=== PATIENT | male | born 2005 | race African-American/Black ===

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

== ENCOUNTER 2024-01-14 11:25 | Emergency (ER) | payer BC ==
[2024-01-14] MEDS ORDERED: Lorazepam 2 MG/ML VIAL ONE (11:43)
[2024-01-14 11:58] LABS: #Basophils 0.1 thou/uL (0.0-0.2); #Eosinphils 0.1 thou/uL (0.0-0.7); #Lymphocytes 4.3 thou/uL (1.20-3.40); #Monocytes 0.5 thou/uL (0.11-0.59); #Neutrophils 2.6 thou/uL (1.40-6.50); %Basophils 1.8 % (0.0-1.0); %Eosinophils 0.9 % (0.0-10.0); %Lymphocytes 56.4 % (28.0-48.0); %Monocytes 6.2 % (0.0-4.0); %Neutrophils 34.7 % (31.0-61.0); Hematocrit 42.4 % (42.0-52.0); Hemoglobin 14.6 g/dL (14.0-18.0); Mean Corpuscular HGB CONC 34.4 g/dL (32.0-36.0); Mean Platelet Volume 8.5 fL (7.4-10.4); Platelet Count 272 10x3/uL (130-400); RBC Distribution Width 10.8 % (11.5-14.5); Red Blood Cell (RBC) Count 4.71 mill/uL (4.00-5.20); White Blood Cell (WBC) Count 7.5 10x3/uL (4.8-10.8)
[2024-01-14 12:10] LABS: Troponin I Less than 0.010 ng/mL (< 0.028)
[2024-01-14 12:12] LABS: ALT (SGPT) 14 U/L (8-55); AST (SGOT) 22 U/L (10-45); Albumin 4.8 g/dL (3.5-5.0); Alkaline Phosphatase 121 U/L (50-130); Anion Gap 18 mmol/L (10-20); BUN (Urea Nitrogen) 15 mg/dL (8.4-21.0); Bilirubin, Total 0.4 mg/dL (0.2-1.2); CK (CPK) 121 U/L (30-200); Calc. Creatinine Clearance 0 mL/min (70-130); Calcium 9.9 mg/dL (7.8-10.44); Carbon Dioxide 21 mmol/L (22-29); Chloride 104 mmol/L (98-107); Estimated GFR 110; Globulin 4.1 g/dL (2.4-3.5); Glucose 135 mg/dL (70-105); Potassium 3.2 mmol/L (3.5-5.1); Protein, Total 8.9 g/dL (6.0-8.3); Sodium 140 mmol/L (136-145)
[2024-01-14] MEDS ORDERED: Sodium Chloride 0.9% 2,000 ML ONE (12:14)
== END 2024-01-14 13:24 | disposition home or self-care (01) ==
LOC: NAV ERS 11:25
DX: F12.10 Cannabis abuse, uncomplicated (principal); R00.2 Palpitations; F17.290 Nicotine dependence, other tobacco product, uncomplicated
CPT/HCPCS: 71045; 80053; 82550; 84484; 85025; 96361; 96374; J2060; J7050

== ENCOUNTER 2024-03-29 06:44 | Emergency (ER) | payer BC, SELFPAY ==
[2024-03-29 07:18] LABS: #Basophils 0.1 thou/uL (0.0-0.2); #Eosinphils 0.1 thou/uL (0.0-0.7); #Lymphocytes 2.6 thou/uL (1.20-3.40); #Monocytes 0.6 thou/uL (0.11-0.59); #Neutrophils 2.5 thou/uL (1.40-6.50); %Basophils 1.6 % (0.0-1.0); %Eosinophils 0.9 % (0.0-10.0); %Lymphocytes 44.2 % (28.0-48.0); %Monocytes 10.2 % (0.0-4.0); %Neutrophils 43.1 % (31.0-61.0); Hematocrit 42.3 % (42.0-52.0); Mean Corpuscular Hemoglobin 29.4 pg (25.0-35.0); Mean Corpuscular Volume 89.2 fl (78.0-98.0); Mean Platelet Volume 8.9 fL (7.4-10.4); Platelet Count 209 10x3/uL (130-400); RBC Distribution Width 10.9 % (11.5-14.5); Red Blood Cell (RBC) Count 4.74 mill/uL (4.00-5.20); White Blood Cell (WBC) Count 5.8 10x3/uL (4.8-10.8)
[2024-03-29 07:30] LABS: ALT (SGPT) 21 U/L (8-55); AST (SGOT) 82 U/L (10-45); Albumin 4.8 g/dL (3.5-5.0); Alkaline Phosphatase 146 U/L (50-130); Anion Gap 22 mmol/L (10-20); BUN (Urea Nitrogen) 13 mg/dL (8.4-21.0); Bilirubin, Total 0.9 mg/dL (0.2-1.2); Calc. Creatinine Clearance 0 mL/min (70-130); Carbon Dioxide 18 mmol/L (22-29); Chloride 105 mmol/L (98-107); Estimated GFR 113; Globulin 3.4 g/dL (2.4-3.5); Glucose 101 mg/dL (70-105); Potassium 3.5 mmol/L (3.5-5.1); Protein, Total 8.2 g/dL (6.0-8.3); Sodium 141 mmol/L (136-145)
[2024-03-29] MEDS ORDERED: Sodium Chloride 0.9% 1,000 ML ONE (07:31)
[2024-03-29 08:08] LABS: Troponin I 0.013 ng/mL (< 0.028)
[2024-03-29 08:51] LABS: Bilirubin Small (Negative); Blood, Urine Negative (Negative); Clarity Clear (Clear); Glucose, Urine (Dipstick) Negative (Negative); Ketone, Urine 15 mg/dL (Negative); Leukocyte Negative (Negative); Nitrite Negative (Negative); Protein, Urine (Dipstick) Trace mg/dL (Neg-Trace); Urobilinogen 0.2 mg/dL (Less than 2)
[2024-03-29 08:55] LABS: Specific Gravity, Urine 1.026 (1.002-1.036)
[2024-03-29 08:56] LABS: Bacteria/HPF Rare-Few HPF (None Seen); CAUTI Indications for Culture Alt mental st,lethar; Mucous/LPF 4+ LPF (<2+); RBC/HPF None Seen HPF (0-3); Squamous Epithelial 0-3 HPF (0-3); Urine Culture Reflex No No; WBC/HPF None Seen HPF (0-3)
[2024-03-29 08:59] LABS: Amphetamine Not Detected (NotDetected); Barbiturates Screen Not Detected (NotDetected); Benzodiazepine Screen Not Detected (NotDetected); Cocaine Metabolite Screen Not Detected (NotDetected); Methadone Not Detected (NotDetected); Methamphetamine Not Detected (NotDetected); Opiate Screen Not Detected (NotDetected); Oxycodone Screen Not Detected (NotDetected); Phencyclidine (PCP) Not Detected (NotDetected); THC/Cannabinoid Screen Detected (NotDetected); Tricyclic Screen Not Detected (NotDetected)
== END 2024-03-29 09:24 | disposition home or self-care (01) ==
LOC: NAV ERS 06:44
DX: R00.2 Palpitations (principal)
CPT/HCPCS: 80053; 80306; 81001; 84443; 84484; 85025; 93005; J7050